=== PATIENT | female | born 1955 | race Caucasian/White ===

== ENCOUNTER 2018-01-15 10:54 | Inpatient (IN) ==
[2018-01-15] MEDS ORDERED: Lidocaine -MPF 1% 2 ML VIAL ID ONE (11:36)
[2018-01-15] MEDS ORDERED: cefOXitin 2,000 MG in Water for inj. (sterile) 20 ML 20 ML IVP ONE (11:36)
--- NOTE | 2018-01-15 11:40 | History & Physical Report ---
Date of Encounter: 01/15/18 Time of Encounter: 11:40 24 Hour HP Update - Instructions Instructions: If the History and Physical is less than 30 days old and was completed prior to A.M. admission and or procedure and has NOT been updated on calendar day of procedure please complete this update prior to performing procedure. - Update Patient reports changes in Medical Condition: No Changes in examination, assessment, or condition: No Changes in Medication: No Surgery Remains Indicated: Yes Consent for Planned Operative Procedure(s) Verified: Yes - Pre-Operative Checklist Prophylactic Antibiotic Ordered: Yes Home Medications Include Beta Mamie: No Is VTE Prophylaxis Indicated?: Yes
[2018-01-15] MEDS ORDERED: Ringers Solution, Lactated 1,000 ML IVC SCH (11:45)
--- NOTE | 2018-01-15 12:19 | Anesthesia Evaluation PreOp ---
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 Any Significant HX Other Medical History: Diabetes Type II, GERD, Other (hx bladder cancer (s/p surgery, liquid chemotherapy)) Anesthesia History: No Prior Anesthetic Complications Alcohol Use: none Drug use: none Medications and Allergies Ascorbic Acid [Vitamin C] 500 mg PO DAILY 12/30/17 [History] Ferrous Sulfate 325 mg PO BID 12/30/17 [History] Flaxseed/Omega3,6,9/Fatty Acid [Flax Seed Oil 1,300 mg Softgel] 1 cap PO BID 10/18 [History] Glimepiride [Amaryl] 8 mg PO DAILY 12/30/17 [History] Niacin 500 mg PO BID 12/30/17 [History] Omeprazole 20 mg PO DAILY 12/30/17 [History] metFORMIN [Glucophage] 1,000 mg PO QAM 12/30/17 [History] metFORMIN [Glucophage] 500 mg PO HS 12/30/17 [History] 3 Allergy/AdvReac Type Severity Reaction Status Date / Time No Known Allergies Allergy Verified 01/15/18 11:31 - Meds/Allergy Pre-op Review Medications Reviewed: Yes Allergies Reviewed: Yes Beta Blockers on Current Med List: No Anesthesia Results - Labs Laboratory Tests 01/08/18 01/08/18 01/08/18 12:08 12:08 12:09 WBC 8.0 Hgb 10.3 L Hct 32.6 L Plt Count 302 PT 10.8 INR 1.0 APTT 27.5 Sodium 140 Potassium 3.7 Chloride 104 Carbon Dioxide 26 BUN 8 Creatinine 0.52 L Est GFR ( Amer) > 60 Est GFR (Non-Af Amer) > 60 BUN/Creatinine Ratio 15 Glucose 115 H POC Glucose Calculated Osmolality 289 Calcium 9.3 01/15/18 11:19 WBC Hgb Hct Plt Count PT INR APTT Sodium Potassium Chloride Carbon Dioxide BUN Creatinine Est GFR ( Amer) Est GFR (Non-Af Amer) BUN/Creatinine Ratio Glucose POC Glucose 128 H Calculated Osmolality Calcium - Imaging EKG: report reviewed, image reviewed (SINUS RHYTHM POSSIBLE LEFT ATRIAL ENLARGEMENT) Anesthesia Exam Last Vital Signs Temp 98.8 F 01/15/18 11:22 Pulse 98 01/15/18 11:22 Resp 18 01/15/18 11:22 BP 176/93 01/15/18 11:22 Pulse Ox 96 01/15/18 11:22 Weight: 72 kg NPO (# of Hours): > 8 hrs - HEENT Pupil (Motor): Pupils equal, EOMI Mallampati: III Teeth: Normal Oral Opening: Greater than 3 - CORE SUCKER LOC: Oriented - Cardiac Rhythm: Regular Murmur: None - Pulmonary Breath Sounds: bilateral Clear Respiratory Effort: Symmetrical Anesthesia Assess/Plan ASA Score: 3 (colon ca, DM II) Modified Vito Scale for Level of Consciousness: Cooperative, oriented, and tranquil Anesthetic Plan: General Monitoring Plan: Standard Monitors Recovery Plan: PACU
[2018-01-15] MEDS ORDERED: Ketorolac 30 MG/ML VIAL ONE (12:49)
[2018-01-15] MEDS ORDERED: *HR* FentaNYL (PF) 100 MCG/2 ML VIAL ONE ×2 (12:49→15:05)
[2018-01-15] MEDS ORDERED: Ondansetron 4 MG/2 ML VIAL ONE (12:49)
[2018-01-15] MEDS ORDERED: Lidocaine -MPF 2% 2 ML VIAL ONE (12:49)
[2018-01-15] MEDS ORDERED: *HR* Propofol 200 MG/20 ML VIAL IVP ONE (12:49)
[2018-01-15] MEDS ORDERED: Dexamethasone 4 MG/ML VIAL ONE (12:49)
[2018-01-15] MEDS ORDERED: *HR* Rocuronium Bromide 50 MG/5 ML VIAL ONE ×2 (12:49→14:48)
[2018-01-15] MEDS ORDERED: *HR* Midazolam HCl 5 MG/5 ML VIAL IVP ONE (12:51)
[2018-01-15] MEDS ORDERED: Lidocaine -MPF 4% 5 ML AMPUL ONE (12:55)
[2018-01-15] MEDS ORDERED: *HR* Midazolam HCl 2 MG/2 ML VIAL IVP PRN (15:37)
[2018-01-15] MEDS ORDERED: *HR* HYDROmorphone (PF) 1 MG/ML SYRINGE IVP PRN (15:37)
[2018-01-15] MEDS ORDERED: Albuterol 2.5 MG/3 ML NEBULIZER IH PRN (15:37)
[2018-01-15] MEDS ORDERED: *HR* Meperidine 25 MG/ML SYRINGE IVP PRN (15:37)
[2018-01-15] MEDS ORDERED: *HR* Promethazine 25 MG/ML VIAL IVP PRN ×2 (15:37→18:41)
[2018-01-15] MEDS ORDERED: *HR* FentaNYL (PF) 100 MCG/2 ML VIAL IVP PRN (15:37)
[2018-01-15] MEDS ORDERED: Acetaminophen IV 1,000 MG/100 ML INFUS..BTL IVPB ONE (15:37)
[2018-01-15] MEDS ORDERED: *HR* Morphine 10 MG/ML VIAL ONE (15:49)
[2018-01-15] MEDS ORDERED: Neostigmine Methylsulfate 3 MG/3 ML SYRINGE ONE (17:28)
--- NOTE | 2018-01-15 17:37 | Operative Note ---
Date of procedure: 01/15/18 Pre-op diagnosis: Ascending colon cancer Post-op diagnosis: same Procedure: Robotic right colectomy, lysis of adhesions Complications: none immediate Anesthesia: GETA, local Local Anesthetics: 0.5% Sensorcaine HCL SubQ (cc) Surgeon: Malena Tipton Was there an child and youth program assistant present: Yes Lumber Carrier Operator: Francesca Celeste Estimated blood loss (cc): 40 Urine output (cc): 240 Specimen: right colon Condition: stable Disposition: PACU Procedure in Detail: Patient was brought to the operating suite and placed supine on the operating table. Sign in was performed and everyone was in agreement. Anesthesia was induced and patient was endotracheally intubated by anesthesia without incident. Anesthesia placed a second IV line. The nurse placed a Ramirez catheter. An OG tube was placed by anesthesia. The bilateral arms were tucked. The abdomen was prepped and draped in the usual sterile fashion. Timeout was performed again everyone was in agreement. Left upper quadrant incision through the skin and the subcutaneous tissue with an 11 blade was made. Veress needle was placed through this and water drop test confirmed placement and the abdomen was insufflated. We entered the abdomen in the left upper quadrant incision site with a 5 mm 0 degree laparoscope on the 5 mm in Xcel trocar. The area under entry was visualized there was no waiting and no apparent bowel injury. The omentum was adherent almost entirely to the anterior abdominal wall due to patient's previous open hysterectomy. Left abdominal 8 mm robotic port was placed under direct visualization after first incising the skin with an 11 blade. Using laparoscopic heated scissors and a laparoscopic DeBakey lysis of adhesions was performed for 45 minutes. The 12 mm port was placed several centimeters left lateral and inferior to the umbilicus under direct visualization after first incising the skin with an 11 blade. A right lower quadrant 8 mm port was placed under direct visualization after first incising skin with 11 blade. The 5 mm left upper quadrant port was exchanged for an 8 mm robotic port. A 5 mm XL trocar was placed in the left abdomen under direct visualization after first incising the skin with an 11 blade, it was an assist port. The cecum and appendix was adhesed to the right abdominal wall and these adhesions were taken down with sharp scissors. The robot was brought over the patient's right flank and all ports docked. Patient was placed in Trendelenburg left side down position. 2 caudie graspers and the vessel sealer were docked at the robot and placed in the the abdominal cavity. The family of trees was grasped and lifted inferiorly and anteriorly tenting the ileocolic vessels. Using the vessel sealer we entered the retroperitoneal space just beneath the right colic vessels. Using gentle blunt dissection with the Caudie in the vessel sealer dissection in the retroperitoneal plane to the duodenum was done and dissection carried medial to the C-loop of the duodenum. The the right colic vessels were taken with the vessel sealer proximally. Dissection in the retroperitoneal plane was continued cranially until the liver was encountered. The retroperitoneal plane was dissected laterally and then inferiorly beneath the right colon. The mesentery of the right colon up to the transverse colon was taken down with the vessel sealer. The omentum at the area chosen for transverse colon transection was divided with the vessel sealer up to the colon wall. Adhesions from the proximal transverse colon to the liver were taken down with the vessel sealer The right colon, terminal ileum, proximal transverse colon was then freely mobile. [place] was placed on the cecum. A midline incision in the upper abdomen through the skin and the subcutaneous tissues made with a 15 blade. We dissected to the anterior abdominal wall linea alba fascia with the Bovie. The fascia was opened with the Bovie. All trochars were removed from the abdomen A medium Rogerio wound retractor was placed. The right colon was then brought up through the anterior abdominal wall. An opening beneath the terminal ileum was made with a Aleena. The terminal ileum was transected with a linear CHERRY-75 stapler blue load. The area of the transverse colon that was previously chosen for transection was located. A linear CHERRY-75 stapler blue load was placed across through this and the transverse colon transected. The right colon was then placed off to the back table for pathology. Babcocks were placed on the terminal ileum and transverse colon for retraction. An side to side terminal ileum to middle transverse colon anastomosis was made first with a linear CHERRY-75 stapler creating the common channel which was then closed at the ends with a TL 60 stapler. The the closed end staple line was reinforced with 3-0 silk figure-of- eight stitches. A 3-0 silk crotch stitch was placed. The distal transverse colon omentum was wrapped around the anastomosis which was placed in the abdominal cavity. The Rogerio retractor was removed. [place]'s are placed on either side of the fascia for retraction. The midline fascia was reapproximated with #1 non-looped PDS running stitches meeting in the middle. The subcutaneous tissue was copiously irrigated with sterile saline. The subcutaneous tissue was reapproximated with 3-0 Vicryl interrupted stitches. The skin was closed with sherrie. The 12 mm port site abdominal wall was reapproximated with an 0 Vicryl [id number] stitch. 30 mL of 0.5% Marcaine was injected at all port sites and the midline incision. All port sites skin sites were closed with sherrie. The Ramirez catheter remained with the patient. The OG tube was removed by anesthesia. All lap and instrument counts were correct at the end of the case. Patient tolerated the procedure well. She was taken to PACU in stable condition after being awoken by anesthesia and the OR and being extubated.
--- NOTE | 2018-01-15 18:26 | Anesthesia Evaluation Post Op ---
Date of Encounter: 01/15/18 Time of Encounter: 18:25 - Vital Signs Vital Signs: Vital Signs/O2 Sat, Most Current Temp Pulse Resp BP Pulse Ox 98.2 F 94 16 133/66 95 01/15/18 18:11 01/15/18 18:11 01/15/18 18:11 01/15/18 18:11 01/15/18 18:11 - Lungs Lungs: Clear Ascult./Percussion - Airway Airway: Non-obstructed - Cardiovascular Regular Rate - Mental Status Mental Status: Alert & Oriented, Answers Appropriately - Pain Pain Scale: 0 Pain Scale used: Numeric (1 - 10) - Nausea Vomiting Nausea Vomiting: Not Present - Hydration Hydration: Tolerates oral liquids - Discharge PostOp Status: Transfer Patient to floor
[2018-01-15] MEDS ORDERED: Ondansetron 4 MG/2 ML VIAL IVP PRN (18:41)
[2018-01-15] MEDS ORDERED: OXYCODONE Oral CONC 10 MG/0.5 ML ORAL.SYG SL PRN (18:41)
[2018-01-15] MEDS ORDERED: *HR* Dextrose 50 % in Water (Syg) 50 ML SYRINGE IVP PRN (18:41)
[2018-01-15] MEDS ORDERED: Naloxone 0.4 MG/ML INJ IVP PRN (18:41)
[2018-01-15] MEDS ORDERED: D5% in Water 1,000 ML IVC PRN (18:41)
[2018-01-15] MEDS ORDERED: Dextrose Gel 15 GM/37.5 ML TUBE PO PRN ×2 (18:41)
[2018-01-15] MEDS: 0.9 % Sodium Chloride 1,000 ML IVC SCH (19:12)
[2018-01-15] MEDS: Insulin LISPRO 300 UNITS/3 ML VIAL SQ SCH (19:19)
[2018-01-15] MEDS: Acetaminophen IV 1,000 MG/100 ML INFUS..BTL IVPB SCH (21:38)
[2018-01-16] MEDS: Insulin LISPRO 300 UNITS/3 ML VIAL SQ SCH ×4 (00:24→17:40)
[2018-01-16] MEDS: Acetaminophen IV 1,000 MG/100 ML INFUS..BTL IVPB SCH ×4 (03:46→17:40)
[2018-01-16] MEDS: 0.9 % Sodium Chloride 1,000 ML IVC SCH ×4 (03:47→22:09)
[2018-01-16 05:07] LABS: BUN/Creatinine Ratio 16 (6-26); Blood Urea Nitrogen 9 mg/dL (8-23); Calcium 8.6 mg/dL (8.6-10.3); Carbon Dioxide 23 mEq/L (23-29); Chloride 107 mEq/L (98-107); Glucose 164 mg/dL (70-105); Magnesium 1.8 mg/dL (1.6-2.6); Osmolality,Calculated 292 (280-300); Phosphorous 4.9 mg/dL (2.7-4.5); Potassium 4.3 mEq/L (3.5-5.1); Sodium 140 mEq/L (136-145); eGFR For African Americans > 60 (> 60); eGFR For Non-African Americans > 60 (> 60)
[2018-01-16 08:07] LABS: Basophils % 0.1 %; Hematocrit 29.1 % (35.3-44.9); Hemoglobin 8.8 g/dL (11.5-15.4); Immature Granulocytes % 0.3 % (0-4); Lymphocytes # 0.9 K/mcL (0.6-4.6); Lymphocytes % 8.1 %; Mean Corpuscular HGB Conc 30.2 g/dL (31.6-35.5); Mean Corpuscular Hemoglobin 25.7 pg (28.0-33.3); Mean Corpuscular Volume 84.8 fL (83.0-100.0); Mean Platelet Volume 10.5 fL (9.4-12.4); Monocytes # 0.6 K/mcL (0.0-1.3); Monocytes % 5.8 %; Platelet Count 296 K/mcL (140-400); Red Blood Count 3.43 M/mcL (3.82-4.97); Red Cell Distribution Width 19.4 % (11.5-14.5); Segmented Neutrophils % 85.7 %
[2018-01-16] MEDS: Pantoprazole 40 MG VIAL IVP SCH (09:05)
--- NOTE | 2018-01-16 10:15 | General Surgery Progress Note ---
<Que Lennon - Last Filed: 01/16/18 15:02> Date of Encounter: 01/16/18 Time of Encounter: 05:45 - Assessment and Plan (1) Status post colectomy Current Visit: Yes Status: Acute Postoperative day #1 status post right colectomy with lysis of adhesions. Patient's pain is well-controlled. Hemoglobin of 8.8 (last was 10.3 on 01/08/19) . White blood cell count of 9.5. No overnight fever. - Clear liquid diet. - Remove aleman. - Encourage ambulation. - Pathology pending. - Recheck H/H in the afternoon. If continues to drop, hold heparin. (2) Diabetes mellitus Current Visit: Yes Status: Acute Glucose level of 164. -Every 6 Accu-Cheks. -Low-dose sliding scale insulin. Qualifiers: Diabetes mellitus type: type 2 Diabetes mellitus chcf insulin use: unspecified chcf insulin use status Diabetes mellitus complication status : with unspecified complications Qualified Code(s): E11.8 - Type 2 diabetes mellitus with unspecified complications (3) DVT prophylaxis Current Visit: Yes Status: Acute Heparin 5000 units subcutaneously twice a day. Subjective Narrative: When seen today patient denies any abdominal pain. She denies any nausea or vomiting. Denies any fever or chills. Denies any chest pain or shortness of breath. Denies any bowel movement or passing gas. Objective VITAL SIGNS: Reviewed. See [facility] GENERAL: No apparent distress. HEENT: [Normocephalic, PER, EOMi, oropharynx pink/moist, no JVD noted.] CV: b/l rad pulses 2+, RRR, no murmurs or gallops, no JVD RESPIRATORY: CTAB without wheezes, rales, or rhonchi ABD: soft, minor diffuse tenderness with deep palpation, no rebound/guarding/ rigidity, no peritoneal signs. Hypoactive bowel sounds present. INCISION: 6 total abdominal incisional sites measuring 1 cm. The lower left incision in the abdomen shows some signs of bleeding upon bandage removal otherwise the other incisional sites are clean, dry, intact without purulence/ bleeding/edema/rubor/calor EXTREMITY: grossly normal motor function, no pedal edema, peripheral pulses 2+ b /l NEUROLOGIC EXAM: AOx3, obeys commands, no speech deficits. PSYCHIATRIC: normal mood and affect SKIN: no gross lesions, rashes, or skin changes Vital Signs - Last 8 Hours Temp Pulse Resp BP Pulse Ox 01/16/18 06:52 98.4 F 93 16 170/71 90 01/16/18 03:42 98 F 92 15 160/78 97 Intake and Output 01/15/18 01/16/18 01/16/18 23:59 07:59 15:59 Intake Total 100 / 100 1100 / 1100 100 / 100 Output Total 280 / 280 400 / 400 Balance -180 / -180 700 / 700 100 / 100 Intake: IV Fluids 100 / 100 1100 / 1100 100 / 100 0.9 % Sodium Chloride 1,000 ML 1000 / 1000 @ 120 mls/hr IVC .Q8H20M KASH[facility] Rx #:[id number] Ofirmev 1,000 mg/100 ml 1,000 100 / 100 100 / 100 100 / 100 mg In 100 ml @ 400 mls/hr IVPB Q6HR KASHIF Rx#:[id number] Output: Estimated Blood Loss 40 / 40 Urine Amount (Catheter) 240 / 240 Catheter 400 / 400 Other: # Bowel Movements 0 Weight 73.6 kg Blood Glucose* 212 156 Patient Weight 01/16/18 23:59 Weight 73.6 kg - Labs 01/16/18 07:02 01/16/18 04:13 Diabetes panel 01/16/18 Range/Units 04:13 Sodium 140 (136-145) mEq/L Potassium 4.3 (3.5-5.1) mEq/L Chloride 107 (98-107) mEq/L Carbon Dioxide 23 (23-29) mEq/L BUN 9 (8-23) mg/dL Creatinine 0.56 L (0.60-1.20) mg/dL Glucose 164 H (70-105) mg/dL Calcium 8.6 (8.6-10.3) mg/dL Calcium panel 01/16/18 Range/Units 04:13 Calcium 8.6 (8.6-10.3) mg/dL Phosphorus 4.9 H (2.7-4.5) mg/dL Pituitary panel 01/16/18 Range/Units 04:13 Sodium 140 (136-145) mEq/L Potassium 4.3 (3.5-5.1) mEq/L Chloride 107 (98-107) mEq/L Carbon Dioxide 23 (23-29) mEq/L BUN 9 (8-23) mg/dL Creatinine 0.56 L (0.60-1.20) mg/dL Glucose 164 H (70-105) mg/dL Calcium 8.6 (8.6-10.3) mg/dL Adrenal panel 01/16/18 Range/Units 04:13 Sodium 140 (136-145) mEq/L Potassium 4.3 (3.5-5.1) mEq/L Chloride 107 (98-107) mEq/L Carbon Dioxide 23 (23-29) mEq/L BUN 9 (8-23) mg/dL Creatinine 0.56 L (0.60-1.20) mg/dL Glucose 164 H (70-105) mg/dL Calcium 8.6 (8.6-10.3) mg/dL - VTE Documentation of Mechanical Device: Intermittent pneumatic compression device Consult Discharge Plan - Plan Referrals: Malena Tipton MD [Partnered Physician] - 01/27/18 9:05 am <Malena Tipton - Last Filed: 01/16/18 15:20> Date of Encounter: 01/16/18 - Assessment and Plan (1) DVT prophylaxis Current Visit: Yes Status: Acute EPCD's will recheck Hb at 4:30 pm before start heparin tonight (2) Diabetes mellitus Current Visit: Yes Status: Acute MBS primarily controlled with SSI monitor, continue Qualifiers: Diabetes mellitus type: type 2 Diabetes mellitus chcf insulin 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 Diabetes mellitus complication status : with unspecified complications Qualified Code(s): E11.8 - Type 2 diabetes mellitus with unspecified complications (3) Status post colectomy Current Visit: Yes Status: Acute pod 1 robotic right colectomy for colon cancer await pathology OOB to chair with meals start clears getting iv tylenol prn narcotics- hasnt taken Dc aleman decrease IVF rate IS (4) Colon cancer Current Visit: Yes Status: Acute awaiting pathology Qualifiers: Colon location: ascending Qualified Code(s): C18.2 - Malignant neoplasm of ascending colon Subjective Patient reports: feels better, still having pain, pain is less, no flatus, no bowel movement, afebrile Objective Vital Signs - Last 8 Hours Temp Pulse Resp BP Pulse Ox 01/16/18 10:00 98.3 F 61 16 152/73 99 Intake and Output 01/15/18 01/16/18 01/16/18 23:59 07:59 15:59 Intake Total 100 / 100 1100 / 1100 1100 / 1100 Output Total 280 / 280 400 / 400 Balance -180 / -180 700 / 700 1100 / 1100 Intake: IV Fluids 100 / 100 1100 / 1100 1100 / 1100 0.9 % Sodium Chloride 1,000 ML 1000 / 1000 1000 / 1000 @ 120 mls/hr IVC .Q8H20M KASHIF Rx #:[id number] Ofirmev 1,000 mg/100 ml 1,000 100 / 100 100 / 100 100 / 100 mg In 100 ml @ 400 mls/hr IVPB Q6HR KASHIF Rx#:[id number] Output: Estimated Blood Loss 40 / 40 Urine Amount (Catheter) 240 / 240 Catheter 400 / 400 Other: # Bowel Movements 0 Weight 73.6 kg Blood Glucose* 212 156 118 Patient Weight 01/16/18 23:59 Weight 73.6 kg - General physical appearance well developed, well nourished, no distress - Eyes PERRL, normal ocular movement - ENT normal mucosa, normocephalic - Neck Neck exam: trachea midline - Respiratory normal expansion, clear to auscultation - Cardiovascular Cardiovascular exam: Present: RRR - Abdomen Abdomen: Present: bowel sounds present, soft, tender (appropriate post op tenderness). Absent: distended, guarding, rebound - Incision Incision: Present: clean and dry, intact - Integumentary no rash, no growths - Neurologic CN 2-12 grossly intact - Musculoskeletal normal posture - Psychiatric oriented to time, oriented to person, oriented to place, speech is normal, memory intact - Labs 01/16/18 07:02 01/16/18 04:13 Short CBC 01/16/18 Range/Units 07:02 WBC 10.5 (4.3-11.1) K/mcL Hgb 8.8 L (11.5-15.4) g/dL Hct 29.1 L (35.3-44.9) % Plt Count 296 (140-400) K/mcL Neutrophils # 9.0 H (1.6-8.9) K/mcL BMP 01/16/18 Range/Units 04:13 Sodium 140 (136-145) mEq/L Potassium 4.3 (3.5-5.1) mEq/L Chloride 107 (98-107) mEq/L Carbon Dioxide 23 (23-29) mEq/L BUN 9 (8-23) mg/dL Creatinine 0.56 L (0.60-1.20) mg/dL Glucose 164 H (70-105) mg/dL Calcium 8.6 (8.6-10.3) mg/dL Vital Signs Temp Pulse Resp BP Pulse Ox 01/16/18 10:00 98.3 F 61 16 152/73 99 01/16/18 06:52 98.4 F 93 16 170/71 90 01/16/18 03:42 98 F 92 15 160/78 97 01/15/18 23:54 98.2 F 98 14 147/81 97 01/15/18 21:53 98.6 F 105 16 144/75 96 01/15/18 20:35 98.5 F 100 16 148/75 96 01/15/18 19:35 98.1 F 98 18 142/74 97 01/15/18 19:05 98.0 F 99 20 145/74 96 01/15/18 18:56 96 01/15/18 18:35 99.0 F 97 20 143/73 95 01/15/18 18:11 98.2 F 94 16 133/66 95 01/15/18 18:01 95 16 131/71 94 01/15/18 17:51 95 18 132/65 94 01/15/18 17:41 97.9 F 92 18 128/72 93 Intake and Output 01/15/18 01/16/18 01/16/18 23:59 07:59 15:59 Intake Total 100 / 100 1100 / 1100 1100 / 1100 Output Total 280 / 280 400 / 400 Balance -180 / -180 700 / 700 1100 / 1100 Intake: IV Fluids 100 / 100 1100 / 1100 1100 / 1100 0.9 % Sodium Chloride 1,000 ML 1000 / 1000 1000 / 1000 @ 120 mls/hr IVC .Q8H20M KASHIF Rx #:[id number] Ofirmev 1,000 mg/100 ml 1,000 100 / 100 100 / 100 100 / 100 mg In 100 ml @ 400 mls/hr IVPB Q6HR KASHIF Rx#:[id number] Output: Estimated Blood Loss 40 / 40 Urine Amount (Catheter) 240 / 240 Catheter 400 / 400 Other: # Bowel Movements 0 Weight 73.6 kg Blood Glucose* 212 156 118 Patient Weight 01/16/18 23:59 Weight 73.6 kg - Attending Attestation I examined this patient and my medical decision-making was reviewed with the Resident Physician. I agree with the documented findings, disposition and treatment plan as described except to the extent set forth below.
[2018-01-16] MEDS: OXYCODONE Oral CONC 10 MG/0.5 ML ORAL.SYG SL PRN (13:11)
[2018-01-16] MEDS ORDERED: *HR* OxyCODONE/APAP 5/325 TABLET PO PRN (15:14)
[2018-01-16 16:54] LABS: Hematocrit 27.8 % (35.3-44.9); Hemoglobin 8.5 g/dL (11.5-15.4)
[2018-01-16] MEDS: *HR* Heparin 5,000 UNIT/ML VIAL SQ SCH (16:57)
[2018-01-16] MEDS: *HR* Metoprolol 5 MG/5 ML VIAL IVP PRN (19:30)
[2018-01-17] MEDS: Insulin LISPRO 300 UNITS/3 ML VIAL SQ SCH ×5 (00:56→17:16)
[2018-01-17] MEDS: Acetaminophen IV 1,000 MG/100 ML INFUS..BTL IVPB SCH ×4 (00:58→17:18)
[2018-01-17] MEDS: OXYCODONE Oral CONC 10 MG/0.5 ML ORAL.SYG SL PRN (04:57)
[2018-01-17 05:25] LABS: Basophils % 0.5 %; Eosinophils % 0.5 %; Hematocrit 26.1 % (35.3-44.9); Immature Granulocytes % 0.4 % (0-4); Lymphocytes # 1.8 K/mcL (0.6-4.6); Lymphocytes % 21.7 %; Mean Corpuscular HGB Conc 30.7 g/dL (31.6-35.5); Mean Corpuscular Hemoglobin 26.4 pg (28.0-33.3); Mean Corpuscular Volume 86.1 fL (83.0-100.0); Mean Platelet Volume 9.9 fL (9.4-12.4); Monocytes # 0.5 K/mcL (0.0-1.3); Monocytes % 6.3 %; Neutrophils # 5.9 K/mcL (1.6-8.9); Nucleated Red Blood Cells 0.2 /100 WBC (0); Platelet Count 260 K/mcL (140-400); Red Blood Count 3.03 M/mcL (3.82-4.97); Red Cell Distribution Width 19.8 % (11.5-14.5); Segmented Neutrophils % 70.6 %
[2018-01-17 05:44] LABS: BUN/Creatinine Ratio 12 (6-26); Blood Urea Nitrogen 6 mg/dL (8-23); Calcium 8.3 mg/dL (8.6-10.3); Carbon Dioxide 24 mEq/L (23-29); Chloride 110 mEq/L (98-107); Glucose 157 mg/dL (70-105); Osmolality,Calculated 291 (280-300); Potassium 3.4 mEq/L (3.5-5.1); Sodium 140 mEq/L (136-145); eGFR For African Americans > 60 (> 60); eGFR For Non-African Americans > 60 (> 60)
[2018-01-17] MEDS: *HR* Heparin 5,000 UNIT/ML VIAL SQ SCH ×2 (06:06→17:17)
[2018-01-17] MEDS: Pantoprazole 40 MG VIAL IVP SCH (09:24)
[2018-01-17] MEDS: *HR* Metoprolol 5 MG/5 ML VIAL IVP PRN ×2 (09:24→17:17)
--- NOTE | 2018-01-17 11:10 | General Surgery Progress Note ---
<Que Lennon - Last Filed: 01/17/18 12:17> Date of Encounter: 01/17/18 Time of Encounter: 07:40 - Assessment and Plan (1) Status post colectomy Current Visit: Yes Status: Acute Postoperative day #2 status post right colectomy with lysis of adhesions. Patient's pain is well-controlled. Hemoglobin of 8 (last was 8.5 yesterday). White blood cell count of 8.4. No overnight fever. - Able to handle clear liquid diet. Positive bowel sounds on exam. Denies nausea /vomiting. Advance to full liquid diet. - Discontinue IV fluids. - Encourage ambulation. - Pathology pending. - Continue to trend H/H. (2) Diabetes mellitus Current Visit: Yes Status: Acute Glucose level of 157. -Every 6 Accu-Cheks. -Low-dose sliding scale insulin. Qualifiers: Diabetes mellitus type: type 2 Diabetes mellitus half-way insulin use: unspecified half-way insulin use status Diabetes mellitus complication status : with unspecified complications Qualified Code(s): E11.8 - Type 2 diabetes mellitus with unspecified complications (3) DVT prophylaxis Current Visit: Yes Status: Acute Heparin 5000 units subcutaneously twice a day. Subjective Narrative: Patient denies any abdominal pain at rest and attests to pain only when coughing. She denies any nausea or vomiting. Denies any chest pain or shortness of breath. Denies having any bowel movement but admits to passing gas. Denies any fever or chills. Objective VITAL SIGNS: Reviewed. See [facility] GENERAL: No apparent distress. HEENT: [Normocephalic, PER, EOMi, oropharynx pink/moist, no JVD noted.] CV: b/l rad pulses 2+, RRR, no murmurs or gallops, no JVD RESPIRATORY: CTAB without wheezes, rales, or rhonchi ABD: soft, non-tender, no rebound/guarding/rigidity, no peritoneal signs. Normal bowel sounds present. INCISION: clean, dry, intact without purulence/bleeding/edema/rubor/calor EXTREMITY: grossly normal motor function, no pedal edema, peripheral pulses 2+ b /l NEUROLOGIC EXAM: AOx3, obeys commands, no speech deficits. PSYCHIATRIC: normal mood and affect SKIN: no gross lesions, rashes, or skin changes Vital Signs - Last 8 Hours Temp Pulse Resp BP Pulse Ox 01/17/18 10:56 99.2 F 75 16 164/80 95 01/17/18 09:22 98.0 F 82 18 178/76 98 01/17/18 06:57 98.4 F 82 16 176/79 91 01/17/18 04:25 98.5 F 92 17 168/78 93 Intake and Output 01/16/18 01/17/18 01/17/18 23:59 07:59 15:59 Intake Total 700 / 700 100 / 100 480 / 480 Output Total 500 / 500 600 / 600 Balance 200 / 200 -500 / -500 480 / 480 Intake: IV Fluids 100 / 100 100 / 100 Ofirmev 1,000 mg/100 ml 1,000 100 / 100 100 / 100 mg In 100 ml @ 400 mls/hr IVPB Q6HR [facility] Rx#:[id number] Oral 600 / 600 480 / 480 Output: Urine 500 / 500 600 / 600 Other: Weight 75.9 kg Blood Glucose* 221 152 Patient Weight 01/17/18 23:59 Weight 75.9 kg - Labs 01/17/18 04:39 01/17/18 04:39 Diabetes panel 01/17/18 Range/Units 04:39 Sodium 140 (136-145) mEq/L Potassium 3.4 L (3.5-5.1) mEq/L Chloride 110 H (98-107) mEq/L Carbon Dioxide 24 (23-29) mEq/L BUN 6 L (8-23) mg/dL Creatinine 0.52 L (0.60-1.20) mg/dL Glucose 157 H (70-105) mg/dL Calcium 8.3 L (8.6-10.3) mg/dL Calcium panel 01/17/18 Range/Units 04:39 Calcium 8.3 L (8.6-10.3) mg/dL Pituitary panel 01/17/18 Range/Units 04:39 Sodium 140 (136-145) mEq/L Potassium 3.4 L (3.5-5.1) mEq/L Chloride 110 H (98-107) mEq/L Carbon Dioxide 24 (23-29) mEq/L BUN 6 L (8-23) mg/dL Creatinine 0.52 L (0.60-1.20) mg/dL Glucose 157 H (70-105) mg/dL Calcium 8.3 L (8.6-10.3) mg/dL Adrenal panel 01/17/18 Range/Units 04:39 Sodium 140 (136-145) mEq/L Potassium 3.4 L (3.5-5.1) mEq/L Chloride 110 H (98-107) mEq/L Carbon Dioxide 24 (23-29) mEq/L BUN 6 L (8-23) mg/dL Creatinine 0.52 L (0.60-1.20) mg/dL Glucose 157 H (70-105) mg/dL Calcium 8.3 L (8.6-10.3) mg/dL - VTE Documentation of Mechanical Device: Intermittent pneumatic compression device Consult Discharge Plan - Plan Referrals: Malena Tipton MD [Partnered Physician] - 01/27/18 9:05 am <Malena Tipton - Last Filed: 01/17/18 15:17> Date of Encounter: 01/17/18 - Assessment and Plan (1) DVT prophylaxis Current Visit: Yes Status: Acute (2) Diabetes mellitus Current Visit: Yes Status: Acute restart home meds tonight advanced to fulls ok for diabetic diet for breakfast in am Qualifiers: Diabetes mellitus type: type 2 Diabetes mellitus half-way insulin use: unspecified local company intermodal truck driver insulin use status Diabetes mellitus complication status : with unspecified complications Qualified Code(s): E11.8 - Type 2 diabetes mellitus with unspecified complications (3) Status post colectomy Current Visit: Yes Status: Acute tolerated clears, advance to fulls dc ivf prn pain control - not taking narcotics, doing well with tylenol sliv (4) Colon cancer Current Visit: Yes Status: Acute awaiting pathology Qualifiers: Colon location: ascending Qualified Code(s): C18.2 - Malignant neoplasm of ascending colon Subjective Patient reports: no new complaints, still having pain, pain is less, tolerating liquids well, flatus, no bowel movement, afebrile Objective Vital Signs - Last 8 Hours Temp Pulse Resp BP Pulse Ox 01/17/18 10:56 99.2 F 75 16 164/80 95 01/17/18 09:22 98.0 F 82 18 178/76 98 Intake and Output 01/16/18 01/17/18 01/17/18 23:59 07:59 15:59 Intake Total 700 / 700 200 / 200 1720 / 1720 Output Total 500 / 500 600 / 600 Balance 200 / 200 -400 / -400 1720 / 1720 Intake: IV Fluids 100 / 100 200 / 200 1000 / 1000 0.9 % Sodium Chloride 1,000 ML 1000 / 1000 @ 80 mls/hr IVC .[id number] [facility] Rx #:[id number] Ofirmev 1,000 mg/100 ml 1,000 100 / 100 200 / 200 mg In 100 ml @ 400 mls/hr IVPB Q6HR [facility] Rx#:[id number] Oral 600 / 600 720 / 720 Output: Urine 500 / 500 600 / 600 Other: Meal Lunch Percent of Meal Consumed 100% Weight 75.9 kg Blood Glucose* 221 152 Patient Weight 01/17/18 23:59 Weight 75.9 kg - General physical appearance well developed, well nourished, no distress - Eyes PERRL, normal ocular movement - ENT normal mucosa, normocephalic - Neck Neck exam: trachea midline - Respiratory normal expansion, clear to auscultation - Cardiovascular Cardiovascular exam: Present: RRR - Abdomen Abdomen: Present: bowel sounds present, soft, tender (appropriate post op tenderness). Absent: guarding, rebound - Incision Incision: Present: clean and dry, intact - Integumentary no rash, no growths - Neurologic normal sensation - Musculoskeletal normal posture - Psychiatric oriented to time, oriented to person, oriented to place, speech is normal, memory intact - Labs 01/17/18 04:39 01/17/18 04:39 Diabetes panel 01/17/18 Range/Units 04:39 Sodium 140 (136-145) mEq/L Potassium 3.4 L (3.5-5.1) mEq/L Chloride 110 H (98-107) mEq/L Carbon Dioxide 24 (23-29) mEq/L BUN 6 L (8-23) mg/dL Creatinine 0.52 L (0.60-1.20) mg/dL Glucose 157 H (70-105) mg/dL Calcium 8.3 L (8.6-10.3) mg/dL Calcium panel 01/17/18 Range/Units 04:39 Calcium 8.3 L (8.6-10.3) mg/dL Pituitary panel 01/17/18 Range/Units 04:39 Sodium 140 (136-145) mEq/L Potassium 3.4 L (3.5-5.1) mEq/L Chloride 110 H (98-107) mEq/L Carbon Dioxide 24 (23-29) mEq/L BUN 6 L (8-23) mg/dL Creatinine 0.52 L (0.60-1.20) mg/dL Glucose 157 H (70-105) mg/dL Calcium 8.3 L (8.6-10.3) mg/dL Adrenal panel 01/17/18 Range/Units 04:39 Sodium 140 (136-145) mEq/L Potassium 3.4 L (3.5-5.1) mEq/L Chloride 110 H (98-107) mEq/L Carbon Dioxide 24 (23-29) mEq/L BUN 6 L (8-23) mg/dL Creatinine 0.52 L (0.60-1.20) mg/dL Glucose 157 H (70-105) mg/dL Calcium 8.3 L (8.6-10.3) mg/dL - Attending Attestation I examined this patient and my medical decision-making was reviewed with the Resident Physician. I agree with the documented findings, disposition and treatment plan as described except to the extent set forth below.
[2018-01-17] MEDS: 0.9 % Sodium Chloride 1,000 ML IVC SCH (11:27)
[2018-01-17] MEDS ORDERED: *HR* Metformin 500 MG TABLET PO SCH (21:00)
[2018-01-17] MEDS ORDERED: Insulin LISPRO 300 UNITS/3 ML VIAL SQ SCH (21:00)
[2018-01-18] MEDS: Acetaminophen IV 1,000 MG/100 ML INFUS..BTL IVPB SCH ×2 (00:29→05:31)
[2018-01-18] MEDS: *HR* Metoprolol 5 MG/5 ML VIAL IVP PRN (03:20)
[2018-01-18] MEDS: *HR* Heparin 5,000 UNIT/ML VIAL SQ SCH (05:31)
[2018-01-18 05:40] LABS: Basophils % 0.6 %; Eosinophils # 0.2 K/mcL (0.0-0.6); Eosinophils % 2.7 %; Hematocrit 27.8 % (35.3-44.9); Hemoglobin 8.1 g/dL (11.5-15.4); Immature Granulocytes % 0.3 % (0-4); Lymphocytes # 1.7 K/mcL (0.6-4.6); Lymphocytes % 24.6 %; Mean Corpuscular HGB Conc 29.1 g/dL (31.6-35.5); Mean Corpuscular Hemoglobin 24.8 pg (28.0-33.3); Mean Corpuscular Volume 85.3 fL (83.0-100.0); Mean Platelet Volume 10.3 fL (9.4-12.4); Monocytes # 0.4 K/mcL (0.0-1.3); Monocytes % 5.9 %; Neutrophils # 4.5 K/mcL (1.6-8.9); Platelet Count 274 K/mcL (140-400); Red Blood Count 3.26 M/mcL (3.82-4.97); Red Cell Distribution Width 19.6 % (11.5-14.5); Segmented Neutrophils % 65.9 %
[2018-01-18 06:06] LABS: BUN/Creatinine Ratio 13 (6-26); Blood Urea Nitrogen 6 mg/dL (8-23); Calcium 8.6 mg/dL (8.6-10.3); Carbon Dioxide 24 mEq/L (23-29); Chloride 110 mEq/L (98-107); Glucose 155 mg/dL (70-105); Osmolality,Calculated 293 (280-300); Potassium 3.3 mEq/L (3.5-5.1); Sodium 141 mEq/L (136-145); eGFR For African Americans > 60 (> 60); eGFR For Non-African Americans > 60 (> 60)
[2018-01-18 06:28] VITALS: BP 155/71
[2018-01-18] MEDS: Insulin LISPRO 300 UNITS/3 ML VIAL SQ SCH (08:07)
--- NOTE | 2018-01-18 08:20 | General Surgery Progress Note ---
Date of Encounter: 01/18/18 Time of Encounter: 07:15 - Assessment and Plan (1) Status post colectomy Current Visit: Yes Status: Acute Postoperative day #2 status post right colectomy with lysis of adhesions. Patient's pain is well-controlled. Hemoglobin of 8 (last was 8.5 yesterday). White blood cell count of 8.4. No overnight fever. - Able to handle clear liquid diet. Positive bowel sounds on exam. Denies nausea /vomiting. Advance to full liquid diet. - Discontinue IV fluids. - Encourage ambulation. - Pathology pending. - Continue to trend H/H. (2) Diabetes mellitus Current Visit: Yes Status: Acute Glucose level of 157. -Every 6 Accu-Cheks. -Low-dose sliding scale insulin. 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 Subjective Narrative: Patient says that her abdominal pain has decreased since yesterday. She denies having a BM yet but says that she has been passing gas. She denies any nausea and vomiting. She denies any chest pain and SOB. Denies any fever or chills. Objective VITAL SIGNS: Reviewed. See [facility] GENERAL: no apparent distress. HEENT: [Normocephalic, PER, EOMi, oropharynx pink/moist, no JVD noted.] CV: b/l rad pulses 2+, RRR, no murmurs or gallops, no JVD RESPIRATORY: CTAB without wheezes, rales, or rhonchi ABD: soft, minor diffuse tenderness with deep palpation, no rebound/guarding/ rigidity, no peritoneal signs. Normal bowel sounds present. INCISION: abdominal incisionss (6 total) clean, dry, intact without purulence/ bleeding/edema/rubor/calor EXTREMITY: grossly normal motor function, no pedal edema, peripheral pulses 2+ b /l NEUROLOGIC EXAM: AOx3, obeys commands, no speech deficits. PSYCHIATRIC: normal mood and affect SKIN: no gross lesions, rashes, or skin changes Vital Signs - Last 8 Hours Temp Pulse Resp BP Pulse Ox 01/18/18 06:26 98.2 F 89 16 155/71 94 01/18/18 04:43 181/83 01/18/18 03:13 98.1 F 82 16 189/80 96 Intake and Output 01/17/18 01/18/18 01/18/18 23:59 07:59 15:59 Intake Total 460 / 460 320 / 320 Output Total 1000 / 1000 500 / 500 Balance -540 / -540 -180 / -180 Intake: IV Fluids 100 / 100 200 / 200 Ofirmev 1,000 mg/100 ml 1,000 100 / 100 200 / 200 mg In 100 ml @ 400 mls/hr IVPB Q6HR [facility] Rx#:[id number] Oral 360 / 360 120 / 120 Output: Urine 1000 / 1000 500 / 500 Other: Meal Dinner Percent of Meal Consumed 50% Weight 76.5 kg Blood Glucose* 155 179 Patient Weight 01/18/18 23:59 Weight 76.5 kg - Labs 01/18/18 04:06 01/18/18 04:06 Diabetes panel 01/18/18 Range/Units 04:06 Sodium 141 (136-145) mEq/L Potassium 3.3 L (3.5-5.1) mEq/L Chloride 110 H (98-107) mEq/L Carbon Dioxide 24 (23-29) mEq/L BUN 6 L (8-23) mg/dL Creatinine 0.47 L (0.60-1.20) mg/dL Glucose 155 H (70-105) mg/dL Calcium 8.6 (8.6-10.3) mg/dL Calcium panel 01/18/18 Range/Units 04:06 Calcium 8.6 (8.6-10.3) mg/dL Pituitary panel 01/18/18 Range/Units 04:06 Sodium 141 (136-145) mEq/L Potassium 3.3 L (3.5-5.1) mEq/L Chloride 110 H (98-107) mEq/L Carbon Dioxide 24 (23-29) mEq/L BUN 6 L (8-23) mg/dL Creatinine 0.47 L (0.60-1.20) mg/dL Glucose 155 H (70-105) mg/dL Calcium 8.6 (8.6-10.3) mg/dL Adrenal panel 01/18/18 Range/Units 04:06 Sodium 141 (136-145) mEq/L Potassium 3.3 L (3.5-5.1) mEq/L Chloride 110 H (98-107) mEq/L Carbon Dioxide 24 (23-29) mEq/L BUN 6 L (8-23) mg/dL Creatinine 0.47 L (0.60-1.20) mg/dL Glucose 155 H (70-105) mg/dL Calcium 8.6 (8.6-10.3) mg/dL - VTE Documentation of Mechanical Device: Intermittent pneumatic compression device Consult Discharge Plan - Plan Referrals: Malena Tipton MD [Partnered Physician] - 01/27/18 9:05 am
--- NOTE | 2018-01-18 08:28 | Discharge Summary ---
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 See [facility] GENERAL: no apparent distress. HEENT: [Normocephalic, PER, EOMi, oropharynx pink/moist, no JVD noted.] CV: b/l rad pulses 2+, RRR, no murmurs or gallops, no JVD RESPIRATORY: CTAB without wheezes, rales, or rhonchi ABD: soft, minor diffuse tenderness with deep palpation, no rebound/guarding/ rigidity, no peritoneal signs. Normal bowel sounds. INCISION: abdominal incisions (6 total) clean, dry, intact without purulence/ bleeding/edema/rubor/calor. Minor serosanguinous drainage on bandage. Normal bowel sounds present. EXTREMITY: grossly normal motor function, no pedal edema, peripheral pulses 2+ b /l NEUROLOGIC EXAM: AOx3, obeys commands, no speech deficits. PSYCHIATRIC: normal mood and affect SKIN: no gross lesions, rashes, or skin changes Initial Vital Signs Temp Pulse Resp BP Pulse Ox 98.8 F 98 18 176/93 96 01/15/18 11:22 01/15/18 11:22 01/15/18 11:22 01/15/18 11:22 01/15/18 11:22 - Hospital Course Hospital course: Ms. Jacobo is a 62 year old female with a past medical history of type 2 diabetes mellitus, hyperlipidemia, GERD, and recently diagnosed colonic adenocarcinoma that presented for scheduled colectomy. Colonoscopy on 12/30/17 showed several polyps and a right proximal ascending 2/3 circumferential colon mass which was found to be infiltrating moderately differentiated to poorly differentiated colonic adenocarcinoma. Patient underwent a robotic right colectomy with lysis of adhesions 01/15/18. Patient's diet has been slowly advanced from clear liquids to full liquids. She has been able to tolerate the full liquids. When seen today she said her abdominal pain has considerably improved. She denies having a bowel movement yet but admits to passing gas. She denies any nausea or vomiting. Denies any chest pain or shortness of breath. For the past 2 days patient's blood pressure has increased to a range of 163-181/76-83 (baseline around 130-140/60-75). Patient was started on 12.5 mg of metoprolol twice a day yesterday. Today her blood pressure has dropped down to 155/71. Patient to be discharged home today. She is to follow up with her PCP within one week. She will also need to discuss her HTN with her PCP. She has a follow-up appointment with her surgeon Dr. Tipton on 01/27/18. Patient was warned that if she developed fever, increased abdominal pain, constipation, melena, hematochezia, chest pain, or shortness of breath to immediately contact the surgery clinic or report to the ER. - Time Spent with Patient Total time spent providing and/or coordinating discharge services: Less than 30 minutes - Discharge Medications Prescriptions: Docusate [Colace] 100 mg PO DAILY #30 capsule Ibuprofen 800 mg PO Q8H #42 tablet Metoprolol [Lopressor] 12.5 mg PO BID #60 tablet Ondansetron ODT [Zofran ODT] 4 mg PO Q6H PRN #15 tab.rapdis PRN Reason: Nausea Oxycodone HCl/Acetaminophen [Percocet 5-325 mg Tablet] 1 each PO Q6H PRN 7 Days #28 tablet PRN Reason: Pain Home Medications: Ascorbic Acid [Vitamin C] 500 mg PO DAILY 12/30/17 [History] Ferrous Sulfate 325 mg PO BID 12/30/17 [History] Flaxseed/Omega3,6,9/Fatty Acid [Flax Seed Oil 1,300 mg Softgel] 1 cap PO BID 10/18 [History] Glimepiride [Amaryl] 8 mg PO DAILY 12/30/17 [History] Niacin 500 mg PO BID 12/30/17 [History] Omeprazole 20 mg PO BID 12/30/17 [History] metFORMIN [Glucophage] 1,000 mg PO QAM 12/30/17 [History] metFORMIN [Glucophage] 500 mg PO HS 12/30/17 [History] Sucralfate [Carafate] 1 gm PO QIDAC 01/15/18 [History] Docusate [Colace] 100 mg PO DAILY #30 capsule 01/18/18 [Rx] Ibuprofen 800 mg PO Q8H #42 tablet 01/18/18 [Rx] Metoprolol [Lopressor] 12.5 mg PO BID #60 tablet 01/18/18 [Rx] Ondansetron ODT [Zofran ODT] 4 mg PO Q6H PRN #15 tab.rapdis 01/18/18 [Rx] Oxycodone HCl/Acetaminophen [Percocet 5-325 mg Tablet] 1 each PO Q6H PRN 7 Days #28 tablet 01/18/18 [Rx] Allergies/Adverse Reactions: 3 Allergy/AdvReac Type Severity Reaction Status Date / Time No Known Allergies Allergy Verified 01/15/18 12:42 Date of admission: 01/15/18 18:31 Primary care physician: Elias Milner MD Consults: 01/15/18 19:06 Consult to Pastoral Services [CONS] Routine Comment: Discharging clinician: Que Lennon Anticipated date of discharge: 01/18/18 Labs on day of discharge: Labs from last 24 hours 01/18/18 01/18/18 01/18/18 07:45 04:06 04:06 WBC 6.8 RBC 3.26 L Hgb 8.1 L Hct 27.8 L MCV 85.3 MCH 24.8 L MCHC 29.1 L RDW 19.6 H Plt Count 274 MPV 10.3 Immature Gran % 0.3 Seg Neutrophils % 65.9 Lymphocytes % 24.6 Monocytes % 5.9 Eosinophils % 2.7 Basophils % 0.6 Neutrophils # 4.5 Lymphocytes # 1.7 Monocytes # 0.4 Eosinophils # 0.2 Basophils # 0.0 Sodium 141 Potassium 3.3 L Chloride 110 H Carbon Dioxide 24 BUN 6 L Creatinine 0.47 L Est GFR ( Amer) > 60 Est GFR (Non-Af Amer) > 60 BUN/Creatinine Ratio 13 Glucose 155 H POC Glucose 179 H Calculated Osmolality 293 Calcium 8.6 01/17/18 01/17/18 01/17/18 21:12 16:35 11:33 WBC RBC Hgb Hct MCV MCH MCHC RDW Plt Count MPV Immature Gran % Seg Neutrophils % Lymphocytes % Monocytes % Eosinophils % Basophils % Neutrophils # Lymphocytes # Monocytes # Eosinophils # Basophils # Sodium Potassium Chloride Carbon Dioxide BUN Creatinine Est GFR ( Amer) Est GFR (Non-Af Amer) BUN/Creatinine Ratio Glucose POC Glucose 155 H 138 H 162 H Calculated Osmolality Calcium - Patient Status Disposition: Home, Self-Care Condition: Fair Functional capacity at discharge: independent ambulation Overall status at discharge: patient is progressing back to baseline - Discharge Instructions Instructions: Colectomy (DC) Follow Up With: Malena Tipton MD [Partnered Physician] - 01/27/18 9:05 am Elias Milner MD [Primary Care Provider] - Additional Instructions: 1. Your dressing should be removed prior to your discharge date. You may shower , avoid soaking your incision in a tub for a week or so. Cleanse incision gently with a mild soap and water-rinse thoroughlypat dry. Your incision does not need to be redressed. Any sutures or clips still in place at the time of discharge will be removed at your first postoperative visit. Should you have steri-strips across your incision, they will begin to curl as your incision heals (usually within 5-7 days). You may peel them off when this happens. Avoid applying cream, lotions, or powder to your incision. 2. There are no specific dietary restrictions associated with this surgery. Maintaining a well balanced diet is essential for proper healing. Oral fluids are encouraged. 3. It is safe to use a mild laxative. Do so if your bowels have not moved by the third day at home. 4. Walking is healthy. Gradually increase ambulation and activities each day. Allow for regular, uninterrupted rest periods. You are permitted to go up and down stairs slowly while using a handrail. Avoid sitting for long periods of time; avoid crossing your legs; avoid heavy lifting (nothing over 10- 15 pounds) for 6-8 weeks; and avoid any strenuous sports. 5. You may drive when you are comfortable enough to react and move quickly in an emergency (usually 1-2 weeks after surgery). Long trips over 25 miles are not advised. Do not drive if you are taking prescription pain medication. 6. For pain, one of the Ibuprofen compounds (Advil, Nuprin, etc.) or Tylenol is suggested. Should these not be effective in managing your discomfort, prescription pain medications will be given on an individual basis. 7. Please call the office to report any of the following: Temperature of 101 or higher. Signs of infection, possibly including increasing redness, warmth, tenderness, drainage, odor at incision site Persistent moderate to severe pain No bowel movement within 48 hours from OR date. Your follow-up appointment with Dr. Tipton will be on 01/27/18. 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 Jacobo is a 62 year old female - Time Spent with Patient Total time spent providing and/or coordinating discharge services: Date of admission: 01/15/18 18:31 Primary care physician: Elias Milner MD Consults: 01/15/18 19:06 Consult to Pastoral Services [CONS] Routine Comment: Labs on day of discharge: Labs from last 24 hours 01/18/18 01/18/18 01/18/18 07:45 04:06 04:06 WBC 6.8 RBC 3.26 L Hgb 8.1 L Hct 27.8 L MCV 85.3 MCH 24.8 L MCHC 29.1 L RDW 19.6 H Plt Count 274 MPV 10.3 Immature Gran % 0.3 Seg Neutrophils % 65.9 Lymphocytes % 24.6 Monocytes % 5.9 Eosinophils % 2.7 Basophils % 0.6 Neutrophils # 4.5 Lymphocytes # 1.7 Monocytes # 0.4 Eosinophils # 0.2 Basophils # 0.0 Sodium 141 Potassium 3.3 L Chloride 110 H Carbon Dioxide 24 BUN 6 L Creatinine 0.47 L Est GFR ( Amer) > 60 Est GFR (Non-Af Amer) > 60 BUN/Creatinine Ratio 13 Glucose 155 H POC Glucose 179 H Calculated Osmolality 293 Calcium 8.6 01/17/18 01/17/18 21:12 16:35 WBC RBC Hgb Hct MCV MCH MCHC RDW Plt Count MPV Immature Gran % Seg Neutrophils % Lymphocytes % Monocytes % Eosinophils % Basophils % Neutrophils # Lymphocytes # Monocytes # Eosinophils # Basophils # Sodium Potassium Chloride Carbon Dioxide BUN Creatinine Est GFR ( Amer) Est GFR (Non-Af Amer) BUN/Creatinine Ratio Glucose POC Glucose 155 H 138 H Calculated Osmolality Calcium - Attending Attestation resident discharged patient before I had a chance to see her
[2018-01-18] MEDS ORDERED: *HR* Metformin 500 MG TABLET PO SCH (09:00)
[2018-01-18] MEDS ORDERED: *HR* Glimepiride 4 MG TABLET PO SCH (09:00)
== END 2018-01-18 10:15 | disposition home or self-care (01) | DRG 331 ==
LOC: SAMDAY 10:54 → 3ANU 18:31
PROVIDERS: ADMIT Surgery; ATTEND Surgery